=== PATIENT | male | born 1995 | race Hispanic/Latino ===

== ENCOUNTER 2020-01-27 20:30 | Emergency (ER) | payer OTHER ==
[~2020-01-27] VITALS: Ht 170.2 cm; Wt 72.6 kg
[~2020-01-27 20:30] MED LIST: LEVOTHYROXINE50 MCG PO
[2020-01-27] MEDS ORDERED: ASPIRIN 81 MG CHEW TAB PO ONE (20:45)
[2020-01-27] MEDS ORDERED: SODIUM CHLORIDE 0.9% 1000ML 1,000 ML IV ONE (20:45)
[2020-01-27 21:11] LABS: BASOPHILS # (AUTO) 0.1 (0.0-0.1); BASOPHILS % 0.5 % (0.0-1.0); EOSINOPHILS # (AUTO) 0.1 (0.0-0.4); EOSINOPHILS % 1.5 % (0.0-6.0); HEMATOCRIT 42.2 % (38.2-49.6); HEMOGLOBIN 14.2 g/dL (14.0-18.0); LYMPHOCYTES # (AUTO) 1.5 (1.0-3.2); LYMPHOCYTES % 16.6 % (18.0-39.1); MEAN CORPUSCULAR HEMOGLOBIN 31.3 pg (28-32); MEAN CORPUSCULAR HGB CONC 33.6 g/dL (31-35); MONOCYTES # (AUTO) 0.7 (0.2-0.8); MONOCYTES % 8.1 % (4.4-11.3); NEUTROPHILS # (AUTO) 6.6 (2.1-6.9); NEUTROPHILS % 72.6 % (38.7-80.0); PLATELET COUNT 245 x10e3/uL (140-360); RED BLOOD COUNT 4.54 x10e6/uL (4.3-5.7); RED CELL DISTRIBUTION WIDTH 13.1 % (11.7-14.4)
[2020-01-27 21:18] LABS: CLARITY,URINE HAZY (CLEAR); COLOR,URINE YELLOW (YELLOW)
[2020-01-27 21:19] LABS: AMPHETAMINES SCREEN,URINE NEGATIVE (NEGATIVE); BENZODIAZEPINES SCREEN,URINE NEGATIVE (NEGATIVE); KETONES,URINE NEGATIVE (NEGATIVE); LEUKOCYTE ESTERASE ,URINE NEGATIVE (NEGATIVE); NITRITE,URINE NEGATIVE (NEGATIVE); PHENCYCLIDINE SCREEN,URINE NEGATIVE (NEGATIVE); PROTEIN,URINE DIPSTICK NEGATIVE (NEGATIVE); URINE UROBILINOGEN 0.2 mg/dL (0.2 - 1)
[2020-01-27 21:20] LABS: BILIRUBIN,URINE NEGATIVE (NEGATIVE)
[2020-01-27 21:23] LABS: AMORPHOUS SEDIMENT,URINE FEW (FEW); BACTERIA,URINE FEW /HPF; EPITHELIAL CELLS,URINE FEW /LPF; RBC,URINE 0-5 /HPF (0-5); WBC,URINE (MAN) 0-5 /HPF (0-5)
[2020-01-27 21:33] LABS: ALANINE AMINOTRANSFERASE 99 IU/L (0-55); ALBUMIN 4.1 g/dL (3.5-5.0); ALBUMIN/GLOBULIN RATIO 1.3 (0.8-2.0); ALKALINE PHOSPHATASE 68 IU/L (40-150); ANION GAP 15.1 mmol/L (8-16); BLOOD UREA NITROGEN 20 mg/dL (7-26); BUN/CREATININE RATIO 21 (6-25); CALCIUM 9.4 mg/dL (8.4-10.2); CARBON DIOXIDE 25 mmol/L (22-29); CHLORIDE 103 mmol/L (98-107); CREATINE KINASE 414 IU/L (30-200); CREATININE, SERUM 0.96 mg/dL (0.72-1.25); EST GLOMERULAR FILTRATION RATE > 60 ML/MIN (60-); GLUCOSE 96 mg/dL (74-118); POTASSIUM 4.1 mmol/L (3.5-5.1); SODIUM 139 mmol/L (136-145)
[2020-01-27 22:42] VITALS: BP 125/69
== END 2020-01-27 22:56 | disposition home or self-care (01) ==
LOC: ER 20:35
DX: R53.1 Weakness (principal); R53.83 Other fatigue; R42 Dizziness and giddiness; F17.210 Nicotine dependence, cigarettes, uncomplicated
CPT/HCPCS: 36415; 70450; 80053; 80307; 81001; 82550; 82553; 84484; 85025; 93005; 99284; J7030

== ENCOUNTER 2021-02-01 22:16 | Emergency (ER) | payer OTHER ==
[~2021-02-01] VITALS: Ht 170.2 cm; Wt 72.6 kg
[2021-02-01] MEDS ORDERED: KETOROLAC TROMETHAMINE 30 MG/ML VIAL IV STA (22:18)
[2021-02-01 22:27] VITALS: BP 136/84
[2021-02-01 22:33] LABS: BASOPHILS # (AUTO) 0.1 (0.0-0.1); BASOPHILS % 0.6 % (0.0-1.0); EOSINOPHILS # (AUTO) 0.2 (0.0-0.4); EOSINOPHILS % 2.5 % (0.0-6.0); HEMATOCRIT 43.2 % (38.2-49.6); HEMOGLOBIN 14.8 g/dL (14.0-18.0); LYMPHOCYTES # (AUTO) 1.8 (1.0-3.2); LYMPHOCYTES % 20.9 % (18.0-39.1); MEAN CORPUSCULAR HEMOGLOBIN 31.3 pg (28-32); MEAN CORPUSCULAR HGB CONC 34.3 g/dL (31-35); MEAN CORPUSCULAR VOLUME 91.3 fL (81-99); MONOCYTES # (AUTO) 0.7 (0.2-0.8); MONOCYTES % 7.7 % (4.4-11.3); NEUTROPHILS # (AUTO) 5.9 (2.1-6.9); NEUTROPHILS % 68.1 % (38.7-80.0); PLATELET COUNT 304 x10e3/uL (140-360); RED BLOOD COUNT 4.73 x10e6/uL (4.3-5.7); RED CELL DISTRIBUTION WIDTH 12.1 % (11.7-14.4)
[2021-02-01 22:41] LABS: CLARITY,URINE CLEAR (CLEAR); COLOR,URINE YELLOW (YELLOW); LEUKOCYTE ESTERASE ,URINE NEGATIVE (NEGATIVE)
[2021-02-01 22:42] LABS: AMPHETAMINES SCREEN,URINE POSITIVE (NEGATIVE); BENZODIAZEPINES SCREEN,URINE NEGATIVE (NEGATIVE); KETONES,URINE 2+ (NEGATIVE); NITRITE,URINE NEGATIVE (NEGATIVE); PHENCYCLIDINE SCREEN,URINE NEGATIVE (NEGATIVE); PROTEIN,URINE DIPSTICK TRACE (NEGATIVE); URINE UROBILINOGEN 1 mg/dL (0.2 - 1)
[2021-02-01 22:47] LABS: ALANINE AMINOTRANSFERASE 30 IU/L (0-55); ALBUMIN 3.9 g/dL (3.5-5.0); ALBUMIN/GLOBULIN RATIO 1.3 (0.8-2.0); ALKALINE PHOSPHATASE 86 IU/L (40-150); ANION GAP 13.8 mmol/L (8-16); BLOOD UREA NITROGEN 10 mg/dL (7-26); BUN/CREATININE RATIO 10 (6-25); CALCIUM 8.6 mg/dL (8.4-10.2); CARBON DIOXIDE 26 mmol/L (22-29); CHLORIDE 105 mmol/L (98-107); CREATINE KINASE 501 IU/L (30-200); CREATININE, SERUM 0.98 mg/dL (0.72-1.25); EST GLOMERULAR FILTRATION RATE 95 ML/MIN (60-); GLUCOSE 91 mg/dL (74-118); POTASSIUM 3.8 mmol/L (3.5-5.1); SODIUM 141 mmol/L (136-145)
[2021-02-01 22:50] LABS: BACTERIA,URINE FEW /HPF; EPITHELIAL CELLS,URINE FEW /LPF; WBC,URINE (MAN) 0-5 /HPF (0-5)
[2021-02-01] MEDS ORDERED: SODIUM CHLORIDE 0.9% 1000ML 1,000 ML IV ONE (23:00)
[2021-02-01] MEDS ORDERED: SODIUM CHLORIDE 0.9% 1000ML 1,000 ML ONE (23:10)
[2021-02-02 00:56] LABS: CREATINE KINASE MB 4.7 ng/mL (0-5.0)
== END 2021-02-02 01:28 | disposition home or self-care (01) ==
LOC: ER 22:19
DX: R07.9 Chest pain, unspecified (principal); F15.10 Other stimulant abuse, uncomplicated
CPT/HCPCS: 36415; 71045; 80053; 80307; 81001; 82550; 82553; 84484; 85025; 93005; 99283; J1885; J7030

== ENCOUNTER 2021-03-05 18:58 | Emergency (ER) | payer OTHER ==
[~2021-03-05] VITALS: Ht 170.2 cm; Wt 72.6 kg
[2021-03-05] MEDS ORDERED: LORAZEPAM INJ 2 MG/ML VIAL IM STA (19:56)
[2021-03-05] MEDS ORDERED: LORAZEPAM 1 MG TAB ONE (20:13)
[2021-03-05] MEDS ORDERED: LORAZEPAM 1 MG TAB PO PRN (20:30)
== END 2021-03-05 20:36 | disposition home or self-care (01) ==
LOC: ER 19:15
DX: F15.10 Other stimulant abuse, uncomplicated (principal); F17.210 Nicotine dependence, cigarettes, uncomplicated
CPT/HCPCS: 93005; 99282

== ENCOUNTER 2021-03-06 14:55 | Emergency (ER) | payer OTHER ==
[~2021-03-06] VITALS: Ht 170.2 cm; Wt 72.6 kg
[2021-03-06] MEDS ORDERED: DIPHENHYDRAMINE HCL INJ 50 MG/ML VIAL IV ONE (15:30)
[2021-03-06] MEDS ORDERED: HALOPERIDOL LACTATE 5 MG/ML VIAL IM ONE (15:30)
[2021-03-06] MEDS ORDERED: LORAZEPAM INJ 2 MG/ML VIAL IM ONE (15:30)
[2021-03-06 15:46] LABS: BASOPHILS # (AUTO) 0.1 (0.0-0.1); BASOPHILS % 0.6 % (0.0-1.0); EOSINOPHILS # (AUTO) 0.1 (0.0-0.4); EOSINOPHILS % 1.2 % (0.0-6.0); HEMATOCRIT 43.8 % (38.2-49.6); HEMOGLOBIN 14.5 g/dL (14.0-18.0); LYMPHOCYTES # (AUTO) 1.1 (1.0-3.2); LYMPHOCYTES % 13.1 % (18.0-39.1); MEAN CORPUSCULAR HGB CONC 33.1 g/dL (31-35); MEAN CORPUSCULAR VOLUME 93.8 fL (81-99); MONOCYTES # (AUTO) 0.7 (0.2-0.8); MONOCYTES % 8.5 % (4.4-11.3); NEUTROPHILS # (AUTO) 6.2 (2.1-6.9); NEUTROPHILS % 76.2 % (38.7-80.0); PLATELET COUNT 271 x10e3/uL (140-360); RED BLOOD COUNT 4.67 x10e6/uL (4.3-5.7); RED CELL DISTRIBUTION WIDTH 12.7 % (11.7-14.4)
[2021-03-06] MEDS ORDERED: SODIUM CHLORIDE 0.9% 250ML 250 ML ONE (15:46)
[2021-03-06 16:06] LABS: ALANINE AMINOTRANSFERASE 29 IU/L (0-55); ALBUMIN 3.7 g/dL (3.5-5.0); ALBUMIN/GLOBULIN RATIO 1.3 (0.8-2.0); ALKALINE PHOSPHATASE 88 IU/L (40-150); ANION GAP 13.7 mmol/L (8-16); BLOOD UREA NITROGEN 9 mg/dL (7-26); BUN/CREATININE RATIO 11 (6-25); CALCIUM 8.5 mg/dL (8.4-10.2); CARBON DIOXIDE 28 mmol/L (22-29); CHLORIDE 104 mmol/L (98-107); CREATININE, SERUM 0.84 mg/dL (0.72-1.25); EST GLOMERULAR FILTRATION RATE 112 ML/MIN (60-); GLUCOSE 123 mg/dL (74-118); POTASSIUM 3.7 mmol/L (3.5-5.1); SODIUM 142 mmol/L (136-145)
[2021-03-06] MEDS ORDERED: ZIPRASIDONE 20 MG VIAL IM ONE (16:06)
[2021-03-06] MEDS ORDERED: ZIPRASIDONE 20 MG VIAL IM STA ×2 (16:10)
[2021-03-06 16:31] LABS: SALICYLATE < 5.0 mg/dL (0-30)
[2021-03-06 17:35] LABS: CLARITY,URINE SL CLOUDY (CLEAR); COLOR,URINE YELLOW (YELLOW); KETONES,URINE 1+ (NEGATIVE); LEUKOCYTE ESTERASE ,URINE NEGATIVE (NEGATIVE); NITRITE,URINE NEGATIVE (NEGATIVE); PROTEIN,URINE DIPSTICK NEGATIVE (NEGATIVE); URINE UROBILINOGEN 1 mg/dL (0.2 - 1)
[2021-03-06 17:38] LABS: AMPHETAMINES SCREEN,URINE NEGATIVE (NEGATIVE); BENZODIAZEPINES SCREEN,URINE POSITIVE (NEGATIVE); PHENCYCLIDINE SCREEN,URINE NEGATIVE (NEGATIVE)
[2021-03-06 17:42] LABS: WBC,URINE (MAN) 0-5 /HPF (0-5)
[2021-03-07 08:03] LABS: BASOPHILS % 0.6 % (0.0-1.0); EOSINOPHILS # (AUTO) 0.1 (0.0-0.4); EOSINOPHILS % 1.7 % (0.0-6.0); HEMATOCRIT 45.5 % (38.2-49.6); LYMPHOCYTES # (AUTO) 1.5 (1.0-3.2); LYMPHOCYTES % 21.2 % (18.0-39.1); MEAN CORPUSCULAR HEMOGLOBIN 31.4 pg (28-32); MEAN CORPUSCULAR VOLUME 95.4 fL (81-99); MONOCYTES # (AUTO) 0.8 (0.2-0.8); MONOCYTES % 11.2 % (4.4-11.3); NEUTROPHILS # (AUTO) 4.5 (2.1-6.9); NEUTROPHILS % 64.9 % (38.7-80.0); PLATELET COUNT 275 x10e3/uL (140-360); RED BLOOD COUNT 4.77 x10e6/uL (4.3-5.7); RED CELL DISTRIBUTION WIDTH 12.6 % (11.7-14.4)
[2021-03-07 08:22] LABS: ALBUMIN 3.6 g/dL (3.5-5.0); ALBUMIN/GLOBULIN RATIO 1.2 (0.8-2.0); ANION GAP 15.1 mmol/L (8-16); CALCIUM 9.3 mg/dL (8.4-10.2); CREATININE, SERUM 0.76 mg/dL (0.72-1.25); POTASSIUM 4.1 mmol/L (3.5-5.1)
[2021-03-07 08:48] LABS: CREATINE KINASE MB 2.6 ng/mL (0-5.0)
[2021-03-07] MEDS ORDERED: SODIUM CHLORIDE 0.9% 1000ML 1,000 ML IV STA (08:53)
[2021-03-07] MEDS ORDERED: SODIUM CHLORIDE 0.9% 1000ML 1,000 ML IV ONE (09:05)
[2021-03-07 14:01] LABS: CREATINE KINASE MB 2.1 ng/mL (0-5.0)
[2021-03-08] MEDS ORDERED: IBUPROFEN 600 MG TAB PO STA (20:20)
[2021-03-10] MEDS ORDERED: ZIPRASIDONE 20 MG VIAL IM PRN (04:45)
[2021-03-10] MEDS ORDERED: IBUPROFEN 400 MG TAB ONE (15:00)
== END 2021-03-11 09:21 ==
LOC: ER 15:09
DX: R45.851 Suicidal ideations (principal); R07.89 Other chest pain; F15.10 Other stimulant abuse, uncomplicated; Z20.822 Contact with and (suspected) exposure to COVID-19
CPT/HCPCS: 36415; 80053; 80307; 80320; 80329 ×2; 81001; 82550; 82553; 84484; 85025; 93005; 99284; J1200; J1630; J2060; J3486; J7030; J7050; U0002

== ENCOUNTER 2021-05-09 05:06 | Emergency (ER) | payer OTHER ==
[~2021-05-09] VITALS: Ht 170.2 cm; Wt 72.6 kg
[2021-05-09] MEDS ORDERED: AUGMENTIN 875-1 EACH PO (05:26)
[2021-05-09] MEDS ORDERED: VENTOLIN HFA18 GM INH (05:26)
[2021-05-09] MEDS ORDERED: FLONASE ALLERG9.9 ML INH (05:26)
== END 2021-05-09 05:31 | disposition home or self-care (01) ==
LOC: ER 05:24
DX: J32.9 Chronic sinusitis, unspecified (principal); F20.9 Schizophrenia, unspecified
CPT/HCPCS: 99282

== ENCOUNTER 2022-10-03 10:40 | Emergency (ER) | payer SELFPAY ==
[~2022-10-03] VITALS: Ht 170.2 cm; Wt 72.6 kg
[2022-10-03 10:40] VITALS: O2SAT 98
[~2022-10-03 10:40] MED LIST changes: +AUGMENTIN 875-1 EACH PO; +FLONASE ALLERG9.9 ML INH; +VENTOLIN HFA18 GM INH
[2022-10-03] MEDS ORDERED: ACETAMINOPHEN 325 MG/10 ML UDC PO PRN (11:00)
[2022-10-03 11:55] LABS: STREPTOCOCCUS GRP A ANTIGEN NEGATIVE (NEGATIVE)
[2022-10-03 11:59] LABS: INFLUENZAE A&B ANTIGEN (RAPID) NEGATIVE (NEGATIVE)
[2022-10-03] MEDS ORDERED: AMOXICILLIN875 MG PO (12:46)
== END 2022-10-03 12:50 | disposition home or self-care (01) ==
LOC: ER 10:46
DX: R06.02 Shortness of breath (principal); J06.9 Acute upper respiratory infection, unspecified; F20.9 Schizophrenia, unspecified; Z20.822 Contact with and (suspected) exposure to COVID-19
CPT/HCPCS: 83518; 87070; 87400; 99283; U0002